=== PATIENT | female | born 1955 | race Caucasian/White ===

== ENCOUNTER → 2016-07-20 20:05 | Outpatient (CLI) | payer OTHER | END | disposition home or self-care (01) | LOC: D.LABREF 20:05 | DX: Z13.9 Encounter for screening, unspecified (principal) ==

== ENCOUNTER → 2016-08-22 19:29 | Outpatient (CLI) | payer MEDICARE | END | disposition home or self-care (01) | LOC: D.LABREF 19:29 | DX: L98.9 Disorder of the skin and subcutaneous tissue, unspecified (principal) ==

== ENCOUNTER → 2017-10-16 13:49 | Outpatient (CLI) | payer MEDICARE | END | disposition home or self-care (01) | LOC: D.CT 13:49 | DX: R51 Headache (principal) ==

== ENCOUNTER → 2018-01-10 18:56 | Outpatient (CLI) | payer MEDICARE | END | disposition home or self-care (01) | LOC: D.LABREF 18:56 | DX: R31.9 Hematuria, unspecified (principal) ==

== ENCOUNTER 2018-02-11 09:05 | Day surgery (SDC) | payer MEDICARE ==
[2018-02-07 09:59] LABS: HEMATOCRIT 39.3 % (36.0-48.0); MCH 31.6 pg (26.0-34.0); MCHC 33.1 g/dL (31.0-37.0); MCV 95.6 fL (80.0-100.0); RBC 4.11 10x6/uL (4.00-5.40); RDW 13.9 % (11.5-14.5); WBC 7.2 10x3/uL (4.8-10.8)
[~2018-02-11] VITALS: Ht 172.7 cm; Wt 105.7 kg
--- NOTE | ~2018-02-11 | OP ---
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 PROCEDURES: Cystoscopy and intravesical Rimso installation. PROCEDURE #2: Rectocele repair with levator ani plication. FINDINGS: On cystoscopy, single ureteral orifices bilaterally, diffuse bladder inflammation with no bladder tumors seen. Also, rectocele grade II on the Sandisfield-Walker scale. ESTIMATED BLOOD LOSS: Less than 50 mL. SPECIMENS: Posterior vaginal wall. CLINICAL HISTORY: This is a 62-year-old female A1, who was referred by Dr. Witt with microscopic hematuria. She had an ultrasound of the kidneys performed at [facility] and this was said to be normal. Urine cytology was sent and this was also normal. She comes today to have cystoscopy done. She has significant voiding symptoms including urge urinary incontinence, daytime frequency, suprapubic pain and dyspareunia. She does have symptoms suggestive of interstitial cystitis. If we find bladder inflammation, we will initiate treatment with intravesical Rimso. Finally, on examination, she has a Sandisfield-Walker grade 2 rectocele. She has difficulty fully emptying her rectum after defecation. In fact, she says she has to manually push the rectocele down in order to defecate. Therefore, she would like to have this rectocele repaired, at the same time, we perform the cystoscopy. SHE IS ALLERGIC TO IBUPROFEN. She was given Ancef utilization management rn to the OR. DESCRIPTION OF PROCEDURE: The patient was given induction of general anesthesia in supine position. She was then placed in dorsal lithotomy position and shaved, prepped and draped. Cystoscopy was performed using a 17-Guinean cystoscope with 30-degree lens. The findings are as outlined above. We then drained the bladder through the cystoscope sheath. A red rubber 16-[place]inean Hollis catheter was inserted into the bladder. A 50 mL of Rimso solution was instilled into the bladder and then the catheter was withdrawn, leaving the solution in the bladder. The patient kept the solution in the bladder throughout the entire case. We then proceeded to the rectocele repair. Stay sutures of #1 nylon were placed through the labia majora to retract the labia majora on both sides. They were anchored to the medial thighs. The posterior vaginal wall was infiltrated with Pitressin solution. A 20 units of Pitressin was dissolved in 100 mL of injectable saline. This was injected for hydrodissection. An elliptical area was marked out on the posterior vaginal wall based on the vaginal introitus and then extending somewhat more proximally. This was excised using a 15 blade and then dissecting the plane between the OPERATIVE REPORT [id number] MARIA D RUELAS posterior vaginal wall and the anterior rectal wall using Metzenbaum scissors. The specimen was then sent to pathology. Using Metzenbaum scissors, we were able to dissect the anterior rectal wall perineally. We also went laterally until we had a clear space on either side of the rectum and in the pararectal space, we could identify the levator ani muscles on either side clearly. A [employer] suture tilt tray driver was then used to place a 2-0 Prolene suture through the levator ani muscle on one side. The same suture was then placed through the levator ani muscle on the opposite side. When tied down, this gave a horizontal mattress suture, which brought the 2 muscle size in approximation over the top of the rectum and served to reduce the rectocele. Four of these sutures were placed and she had complete reduction of the rectocele. The wound was then irrigated out using normal saline. The vaginal wall was reapproximated using running 4-0 Monocryl. We then placed packing of Kerlix infiltrated with estrogen cream into the vagina. The patient will be going home later today. The vaginal packing will be removed prior to her going home. I will see her in followup next week to check on her wound healing. TRANSINT:[id number] Voice Confirmation ID: [id number] DOCUMENT ID: [id number] DANILO THEODORE MD at 0841 CC: [id number] DICTATION DATE: 02/11/18 1552 [employer] W[employer]ER: 02/11/181958 [facility] 02/11/18 [id number] [place] [address]
[~2018-02-11 09:05] MED LIST: AMBIEN5 MG PO; LINZESS145 MCG PO; LYRICA75 MG PO; NORCO 7.5/325 T1 TA1 PO; NORVASC2.5 MG PO; PEPCID AC20 MG PO; PROZAC20 MG PO; ZANAFLEX4 MG PO
[2018-02-11 11:03] VITALS: BP 124/74; Ht 172.7 cm; Wt 105.7 kg
== END 2018-02-11 18:50 | disposition home or self-care (01) ==
LOC: D.OPS 09:05 → D.PAN 11:15 → D.OPS 11:15
PROVIDERS: Anesthesiology
DX: R31.29 Other microscopic hematuria (principal); N30.11 Interstitial cystitis (chronic) with hematuria; N81.6 Rectocele; Z01.812 Encounter for preprocedural laboratory examination

== ENCOUNTER → 2019-10-07 15:00 | Outpatient (CLI) | payer MEDICARE ==
[2018-02-11 11:03] VITALS: BMI 35.5
== END | disposition home or self-care (01) ==
LOC: D.MAMMO 15:00
PROVIDERS: ATTEND Family Medicine
DX: N63.15 Unspecified lump in the right breast, overlapping quadrants (principal)